=== PATIENT | female | born 1985 | race African-American/Black ===

== ENCOUNTER 2018-03-12 09:16 | Emergency (ER) | payer MEDICAID ==
[~2018-03-12] VITALS: Ht 167.6 cm; Wt 60.0 kg
[2018-03-12] MEDS ORDERED: KETOROLAC 60MG/2ML VIAL IM ONE (11:30)
[2018-03-12 11:33] VITALS: BP 101/60
== END 2018-03-12 12:21 | disposition home or self-care (01) ==
LOC: ER 09:16
DX: S93.401A Sprain of unspecified ligament of right ankle, initial encounter (principal); V49.49XA Driver injured in collision with other motor vehicles in traffic accident, initial encounter; Y93.89 Activity, other specified; Y92.410 Unspecified street and highway as the place of occurrence of the external cause
CPT/HCPCS: 96372; 99283; J1885